=== PATIENT | male | born 1955 | race Caucasian/White ===

== ENCOUNTER 2019-09-30 14:11 | Outpatient (CLI) | payer MEDICARE, BC ==
--- NOTE | 2019-10-01 00:45 | Consultation ---
DATE OF CONSULTATION: 09/30/2019 GASTROENTEROLOGY CONSULTATION CONSULTING PHYSICIAN: Lemuel Rivera M.D. REFERRING PHYSICIAN: . CHIEF COMPLAINT: Large colonic polyp. HISTORY OF PRESENT ILLNESS: This is a very pleasant 64-year-old male with multiple history of colonic polyps. Had a recent colonoscopy per that revealed a large polyp. It was recommended to be resected at the hospital. PAST MEDICAL HISTORY: 1. Hypercholesterolemia. 2. Multiple history of colonic polyps. 3. History of H. pylori infection, status post treatment. PAST SURGICAL HISTORY: Left hernia repair. MEDICATIONS: Please see medication reconciliation list. FAMILY HISTORY: No family history of GI malignancies. SOCIAL HISTORY: The patient drinks socially. No IV drug abuse. No alcohol abuse. No tobacco abuse. ALLERGIES: Penicillin. REVIEW OF SYSTEMS: Positive for GERD. PHYSICAL EXAMINATION: VITAL SIGNS: Temperature 98, blood pressure is 137/77, pulse 70, respirations 20. HEENT: Normocephalic and atraumatic. Sclerae anicteric. NECK: Supple. No evidence of obvious lymphadenopathy. CARDIOVASCULAR: Regular rate and rhythm. Plus S1 and S2. No obvious murmur. LUNGS: Clear to auscultation bilaterally. ABDOMEN: Positive bowel sounds. Soft and nontender. No rebound. No guarding. No peritoneal sign. EXTREMITIES: No cyanosis. No clubbing. No edema. ASSESSMENT AND PLAN: This is a 64-year-old male with a large colonic polyp. Plan to do a repeat colonoscopy. The patient was given the information about colonoscopy. Risks and benefits discussed and he will be scheduled next available. I want to thank, for this consultation. Lemuel Rivera M.D. DR: MONCHO JOB#: [id number] CC:
[2019-10-01 08:58] VITALS: BP 137/77
[2019-10-01] MEDS ORDERED: OMEPRAZOLE40 M1 ORAL (08:58)
== END 2019-09-30 16:11 | disposition home or self-care (01) ==
LOC: PAN 14:11
DX: K63.5 Polyp of colon (principal); E78.00 Pure hypercholesterolemia, unspecified; K21.9 Gastro-esophageal reflux disease without esophagitis

== ENCOUNTER 2019-10-14 07:16 | Day surgery (SDC) | payer MEDICARE, BC ==
[2019-10-14] VITALS (9 sets, daily range): BP systolic 134–150; BP diastolic 82–96
[~2019-10-14] VITALS: Ht 172.7 cm; Wt 59.0 kg
[~2019-10-14 07:16] MED LIST: LR 1000ml 1,000 ML IVLG SCH; OMEPRAZOLE40 M1 ORAL
[2019-10-14] MEDS ORDERED: NKM (08:04)
[2019-10-14] MEDS ORDERED: Lidocaine 1% MPF 10mg/ml 5ml ONE (08:30)
[2019-10-14] MEDS ORDERED: Propofol 200mg/20ml IV ONE (08:30)
[2019-10-14] MEDS ORDERED: LR 1000ml ONE (08:30)
[2019-10-14] MEDS ORDERED: LR 1000ml 1,000 ML IVLG SCH (08:38)
--- NOTE | 2019-10-14 08:43 | Anethesia Preoperative Eval ---
Anesthesia Pre-op PMH/ROS General Date of Evaluation: Oct 14, 2019 Time of Evaluation: 08:41 Anesthesiologist: cookie ASA Score: ASA 3 Mallampati Score Class I : Soft palate, uvula, fauces, pillars visible Class II: Soft palate, uvula, fauces visible Class III: Soft palate, base of uvula visible Class IV: Only hard plate visible Mallampati Classification: Class II Surgeon: nahun Diagnosis: colon polyps Surgical Procedure: colonoscopy Anesthesia History: none Social History: alcohol use Family History: no anesthesia problems Allergies: Coded Allergies: PENICILLINS (Verified Allergy, Mild, Rash, 10/01/19) Medications: see eMAR Patient NPO?: Yes Past Medical History Cardiovascular: Reports: HTN, other - hypercholesterolemia Gastrointestinal/Genitourinary: Reports: other - gastritis HEENT: Reports: cataract (L), cataract (R) Anesthesia Pre-op Phys. Exam Physician Exam Last Vital Signs Date Time Temp Pulse Resp B/P (MAP) Pulse Ox O2 Delivery O2 Flow Rate FiO2 10/14/19 08:05 Room Air 10/14/19 07:42 97.2 66 18 143/96 99 Constitutional: NAD Neurologic: CN 2-12 intact Cardiovascular: RRR Respiratory: CTA Gastrointestinal: S/NT/ND Airway Exam Mallampati Score: Class II MO: limited Neck: flexible TMD: 2fb ROM: limited Anesthesia Pre-op A/P Studies Pre-op Studies: EKG - nsr Risk Assessment & Plan Assessment: asa3 Plan: mac Status Change Before Surgery: No Pre-Antibiotics Drug: Daisy Banerjee MD Oct 14, 2019 08:43
[2019-10-14] MEDS ORDERED: DiphenhydrAMINE 50mg/ml Inj IVP PRN (08:45)
[2019-10-14] MEDS ORDERED: Atropine Inj 1mg/10ml Syr IV PRN (08:45)
[2019-10-14] MEDS ORDERED: fentaNYL 100 mcg/2 mL IV PRN (08:45)
[2019-10-14] MEDS ORDERED: Midazolam 2mg/2ml Inj IVP PRN (08:45)
--- NOTE | 2019-10-14 08:56 | Pre-Procedure Note/Attestation ---
Pre-Procedure Note/Attestation Complete Prior to Procedure Planned Procedure: not applicable Procedure Narrative: colonoscopy Indications for Procedure Pre-Operative Diagnosis: screening Attestation I attest that I discussed the nature of the procedure; its benefits; risks and complications; and alternatives (and the risks and benefits of such alternatives ), prior to the procedure, with the patient (or the patient's legal manufacturer's representative). I attest that, if there was a reasonable possibility of needing a blood transfusion, the patient (or the patient's legal manufacturer's representative) was given the [facility] standardized written summary, pursuant to the Raheem Iron Post Blood Safety Act ([place] Health and Safety Code # 1645, as amended). I attest that I re-evaluated the patient just prior to the surgery and that there has been no change in the patient's H&P, except as documented below: Lemuel Rivera MD Oct 14, 2019 08:56
--- NOTE | 2019-10-14 08:57 | Short Stay Surgery H&P ---
History of Present Illness History of Present Illness Chief Complaint see recent office note HPI Armando Perez is a 64 year old male who was admitted on for Colon Polyps Patient History Allergies: Coded Allergies: PENICILLINS (Verified Allergy, Mild, Rash, 10/01/19) Medication History Scheduled Omeprazole (Omeprazole), 40 MG ORAL DAILY, (Reported) Physical Exam Vital Signs Last Vital Signs Date Time Temp Pulse Resp B/P (MAP) Pulse Ox O2 Delivery O2 Flow Rate FiO2 10/14/19 08:05 Room Air 10/14/19 07:42 97.2 66 18 143/96 99 Plan Attestation Are the patient's medical conditions optimized for surgery? Lemuel Rivera MD Oct 14, 2019 08:57
--- NOTE | 2019-10-14 09:53 | Endoscopy Procedure Note ---
Endoscopy Procedure Note General Indication for Procedure: colon polyps Procedures Performed: colonoscopy Operative Findings/Diagnosis: 11 polyps Specimen: yes Pt Tolerated Procedure Well: Yes Estimated Blood Loss: none Anesthesia Anesthesiologist: cookie Anesthesia: MAC Inserted Devices Implant(s) used?: No Quality Quality of Bowel Preparation: Good Did scope reach the cecum?: Yes Was there any complications?: No GI Core Measures 50 yrs or older w/o bx or poly: No 10yrs. F/U recommended: Yes If not recommended, why?: Above average risk 18 years or older w/prev. colo: Yes <3yrs. since last colonoscopy: Yes Med reason:<3 yrs.: Found >10 Adenomas Lemuel Rivera MD Oct 14, 2019 09:53
--- NOTE | 2019-10-14 10:04 | Immediate Post-Op Evaluation ---
Immediate Post-Op Evalulation Immediate Post-Op Evalulation Procedure: colonoscopy w/bx Date of Evaluation: Oct 14, 2019 Time of Evaluation: 10:03 IV Fluids: 875ml lr Blood Products: none Estimated Blood Loss: negligible Blood Pressure Systolic: 138 Blood Pressure Diastolic: 94 Pulse Rate: 93 Respiratory Rate: 18 O2 Sat by Pulse Oximetry: 100 Temperature (Fahrenheit): 97.7 Pain Score (1-10): 0 Nausea: No Vomiting: No Complications none Patient Status: awake, reacts, patent Hydration Status: adequate Drug: Daisy Banerjee MD Oct 14, 2019 10:03
--- NOTE | 2019-10-14 10:32 | 48 Hour Post Anesthesia Eval ---
Post Anesthesia Evaluation Procedure: colonoscopy w/bx Date of Evaluation: Oct 14, 2019 Time of Evaluation: 10:05 Blood Pressure Systolic: 140 0: 88 Pulse Rate: 69 Respiratory Rate: 18 Temperature (Fahrenheit): 97.7 O2 Sat by Pulse Oximetry: 100 Airway: patent Nausea: No Vomiting: No Pain Intensity: 0 Hydration Status: adequate Cardiopulmonary Status: stable Mental Status/LOC: patient returned to baseline Post-Anesthesia Complications: none Follow-up care needed: N/A Daisy Campbell MD Oct 14, 2019 10:32
--- NOTE | 2019-10-14 16:30 | Procedure Note ---
DATE OF PROCEDURE: 10/14/2019 SURGEON: Lemuel Rivera M.D. PROCEDURE: Colonoscopy with biopsy and snare polypectomy. ANESTHESIA: Dr. Estrada. INSTRUMENT: Olympus adult flexible colonoscope. INDICATION: Multiple colonic polyps, large colonic polyp requiring resection. REASON FOR PROCEDURE: The procedure, risks, benefits, and possible consequences, including hemorrhage, aspiration, perforation and infection, and alternative treatments, were explained to the patient/legal guardian by Dr. Lemuel Rivera and the patient/legal guardian understood and accepted these risks. PROCEDURE IN DETAIL: After informed consent was obtained and the patient was adequately sedated, first rectal exam was performed, which was normal. Then, the scope was advanced from the rectum into the cecum documented by appendix orifice, ileocecal valve, and right upper quadrant palpation. Quality of prep was good. The patient had a pedunculated polyp in the proximal ascending colon measured roughly about 6 to 7 mm in size, removed with hot polypectomy technique. The patient had a diminutive polyp in the transverse colon, removed with the cold biopsy forceps technique. The patient had multiple polyps small ones in the descending colon. Six of them removed with the cold biopsy forceps technique. In the sigmoid, there was an area tattooed at about 30 cm from the anal verge, most probably the area where Dr. Vanegas tattooed for flat polyp. We could not see the 2.5 cm polyp that was dictated by Dr. Vanegas in that area. We had Endo-cap on the tip of the scope for helping us to find the polyps better and open up the folds better. We also used narrow band imaging try to find the large polyp that was dictated by Dr. Vanegas. We did not find that polyp per se, but we found out 3 polyps in the sigmoid colon, flat looking sessile polyps. One of them measured about 1 cm. The other 2 were smaller. All 3 were removed with hot snare polypectomy technique. At this time, the scope was gradually removed and procedure was terminated. Retroflexion of rectum showed evidence of internal hemorrhoids. SUMMARY OF FINDINGS: Total of 11 polyps removed from this colonoscopy examination. Please see above for details. The combination of the polypectomy and biopsy. RECOMMENDATIONS: 1. Follow up pathology. 2. Recommend the patient to follow with Dr. Vanegas for future colonoscopy. 3. The patient still most probably has some small polyps left in the colon, which were not removed today, which needs to be removed later by Dr. Vanegas. I want to thank Dr. Vanegas for this kind referral. Lemuel Dagoberto Rivera DR: JOYCE JOB#: [id number] CC: Pan Vanegas M.D.
--- NOTE | 2019-10-18 15:57 | Cardiology Report ---
APPROVED REPORT EKG Measurement Heart [id number] ME [id number] Normal sinus rhythm Normal ECG
== END 2019-10-14 11:20 | disposition home or self-care (01) ==
LOC: GAS 07:16
DX: K63.5 Polyp of colon (principal); Z88.0 Allergy status to penicillin; I10 Essential (primary) hypertension; E78.00 Pure hypercholesterolemia, unspecified; D12.2 Benign neoplasm of ascending colon; D12.4 Benign neoplasm of descending colon; D12.5 Benign neoplasm of sigmoid colon; D12.3 Benign neoplasm of transverse colon
CPT/HCPCS: 45380; 45385; 93005; J2704; J7120; 94003; 94150